=== PATIENT | female | born 1940 | race Hispanic/Latino ===

== ENCOUNTER → 2018-04-30 | Outpatient (CLI) | payer OTHER, SELFPAY ==
[~2018-04-30] MED LIST: AMLO5TAB7 PO; EZET10 PO; METO-391 PO; VALS1TAB81 PO
== END | disposition home or self-care (01) ==
LOC: OIH 13:08
PROVIDERS: ATTEND Internal Medicine Cardiovascular Disease
DX: Z13.6 Encounter for screening for cardiovascular disorders (principal)
CPT/HCPCS: 75571

== ENCOUNTER → 2018-05-08 | Outpatient (CLI) | payer OTHER | END | disposition home or self-care (01) | LOC: SHCH 14:56 | PROVIDERS: ATTEND Internal Medicine Cardiovascular Disease | DX: I35.0 Nonrheumatic aortic (valve) stenosis (principal); R01.1 Cardiac murmur, unspecified; I70.0 Atherosclerosis of aorta | CPT/HCPCS: 93306 ==

== ENCOUNTER → 2018-05-13 | Outpatient (CLI) | payer OTHER | END | disposition home or self-care (01) | LOC: SHCH 09:23 | PROVIDERS: ATTEND Internal Medicine Cardiovascular Disease | DX: I65.23 Occlusion and stenosis of bilateral carotid arteries (principal); I10 Essential (primary) hypertension; R01.1 Cardiac murmur, unspecified; I73.9 Peripheral vascular disease, unspecified; E78.5 Hyperlipidemia, unspecified | CPT/HCPCS: 93880; 93975 ==

== ENCOUNTER → 2018-08-03 | Outpatient (CLI) | payer OTHER ==
[~2018-08-03] VITALS: Ht 147.3 cm; Wt 67.8 kg
[~2018-08-03] MED LIST changes: -AMLO5TAB7 PO; +AMLO5TAB9 PO; +ASPI-1197 PO; +CLON0.1T PO; +CYAN10009 PO; +FOLI1TAB15 PO; +LOSA1TAB42 PO; +ROSU10TA27 PO
[2018-08-03 08:59] VITALS: BP 194/84
[2018-08-03 09:18] LABS: BASOPHILS % (AUTO) 1.1 % (0.0-5.0); HEMATOCRIT 36.2 % (36-48); LYMPHOCYTES % (AUTO) 21.8 % (21.0-51.0); MEAN CORPUSCULAR HEMOGLOBIN 30.9 pg (27.0-33.0); MEAN CORPUSCULAR HGB CONC 33.4 g/dL (32.0-36.0); MEAN CORPUSCULAR VOLUME 92.5 fL (79-99); MONOCYTES % (AUTO) 10.9 % (3.0-13.0); NEUTROPHILS % (AUTO) 64.2 % (40.0-77.0); PLATELET COUNT (AUTO) 356 K/uL (130-400); RED BLOOD CELL COUNT(AUTO) 3.92 MIL/uL (4.00-5.50); RED CELL DISTRIBUTION WIDTH 13.6 % (11.0-15.5); WHITE BLOOD COUNT (AUTO) 6.4 K/uL (4.8-10.8)
[2018-08-03 09:20] LABS: APPEARANCE,URINE Clear (CLEAR); BILIRUBIN,URINE Negative (NEGATIVE); COLOR,URINE Yellow (YELLOW); GLUCOSE, URINE (UA) Negative (NEGATIVE); KETONES,URINE Negative (NEGATIVE); LEUKOCYTE ESTERASE ,URINE Negative (NEGATIVE); NITRATE,URINE Negative (NEGATIVE); OCCULT BLOOD,URINE Negative (NEGATIVE); PROTEIN,URINE Negative (NEGATIVE)
[2018-08-03 09:25] LABS: CREATININE 0.6 mg/dL (0.5-1.5)
[2018-08-03 09:29] LABS: INR 0.95 (0.85-1.15); PARTIAL THROMBOPLASTIN TIME 28.2 SEC (26.3-35.5)
== END ==
LOC: EDSTATUS 08:00 → DAH 10:00
PROVIDERS: ATTEND Internal Medicine Cardiovascular Disease
DX: Z01.818 Encounter for other preprocedural examination (principal); I25.10 Atherosclerotic heart disease of native coronary artery without angina pectoris
CPT/HCPCS: 36415; 71045; 80048; 81003; 85025; 85610; 85730; 93005

== ENCOUNTER 2018-09-02 08:40 | Day surgery (SDC) | payer OTHER ==
[2018-08-31 13:55] VITALS: BP 176/73
[2018-08-31 14:11] LABS: BASOPHILS % (AUTO) 0.9 % (0.0-5.0); EOSINOPHILS % (AUTO) 0.7 % (0.0-8.0); HEMATOCRIT 38.8 % (36-48); LYMPHOCYTES % (AUTO) 20.9 % (21.0-51.0); MEAN CORPUSCULAR HEMOGLOBIN 31.1 pg (27.0-33.0); MEAN CORPUSCULAR HGB CONC 33.3 g/dL (32.0-36.0); MEAN CORPUSCULAR VOLUME 93.3 fL (79-99); MONOCYTES % (AUTO) 8.9 % (3.0-13.0); NEUTROPHILS % (AUTO) 68.6 % (40.0-77.0); PLATELET COUNT (AUTO) 433 K/uL (130-400); RED BLOOD CELL COUNT(AUTO) 4.16 MIL/uL (4.00-5.50); RED CELL DISTRIBUTION WIDTH 13.8 % (11.0-15.5); WHITE BLOOD COUNT (AUTO) 9.4 K/uL (4.8-10.8)
[2018-08-31 14:13] LABS: APPEARANCE,URINE Clear (CLEAR); BILIRUBIN,URINE Negative (NEGATIVE); COLOR,URINE Yellow (YELLOW); GLUCOSE, URINE (UA) Negative (NEGATIVE); KETONES,URINE Negative (NEGATIVE); LEUKOCYTE ESTERASE ,URINE Negative (NEGATIVE); NITRATE,URINE Negative (NEGATIVE); OCCULT BLOOD,URINE Negative (NEGATIVE); PROTEIN,URINE Negative (NEGATIVE)
[2018-08-31 14:17] LABS: CREATININE 0.6 mg/dL (0.5-1.5)
[2018-08-31 14:21] LABS: INR 0.98 (0.85-1.15); PARTIAL THROMBOPLASTIN TIME 29.6 SEC (26.3-35.5); PROTHROMBIN TIME 10.3 SEC (9.6-11.6)
[~2018-09-02] VITALS: Ht 147.3 cm; Wt 66.7 kg
[2018-09-02] VITALS (9 sets, daily range): BP systolic 123–151; BP diastolic 54–71
[~2018-09-02 08:40] MED LIST changes: +ASPI-1181 PO; -ASPI-1197 PO; +CYAN-52 PO; -CYAN10009 PO; -EZET10 PO; +EZET10TA13 PO; -ROSU10TA27 PO; +ROSU10TA28 PO; -VALS1TAB81 PO
--- NOTE | 2018-09-02 09:46 | NUR ---
PT REPORTS HAVING BELLS PALSY, BILATERALLY FACIAL WEAKNESS FOR OVER 30 YEARS.
[2018-09-02] MEDS ORDERED: SODIUM CHLORIDE 0.9% 1000ML 1,000 ML IV ONE (09:55)
[2018-09-02] MEDS ORDERED: IOHEXOL 350 MG/ML 100ML INFUS..BTL IV ONE (12:57)
[2018-09-02] MEDS ORDERED: NITROGLYCERIN 5 MG/ML 10 ML VIAL IV ONE (12:57)
[2018-09-02] MEDS ORDERED: SODIUM BICARB 50MEQ 50ML VIAL ONE (12:57)
[2018-09-02] MEDS ORDERED: IOHEXOL-350 50ML VIAL IV ONE (12:57)
[2018-09-02] MEDS ORDERED: LIDOCAINE HCL 2% 20ML ONE (12:59)
--- NOTE | 2018-09-02 13:10 | NUR ---
procedure pt taken to bottle label inspector for heart cath via bed,no distress noted.
[2018-09-02] MEDS ORDERED: MEPERIDINE-PF 25 MG/ML SYG ONE (13:12)
[2018-09-02] MEDS ORDERED: MIDAZOLAM HCL 1 MG/ML 2ML VIAL ONE (13:12)
[2018-09-02] MEDS ORDERED: SODIUM CHLORIDE 0.9% 1000ML 1,000 ML IV SCH (14:01)
[2018-09-02] MEDS ORDERED: ACETAMINOPHEN 325 MG TAB PO PRN (14:15)
--- NOTE | 2018-09-02 14:15 | NUR ---
post op received pt back from laboratory specialist, s/p [facility], right groin perclose dressing dry and intact, no bleeding hematoma to site. see post cath assessment. vs stable on arrival plan of care discuss with pt / family , instructed to keep bedrest for 4 hrs. call light within reach will continue to monitor
--- NOTE | 2018-09-02 18:00 | NUR ---
dc dc instructions given to pt / pts daughter, instructed to f/u with dr. arana to continue home meds. pt verbalized understanding. right groin perclose dressing dry and intact, no bleeding or hematoma to site . pt getting dress will be discharge once ready
== END 2018-09-02 18:20 | disposition home or self-care (01) ==
LOC: DAH 08:40
PROVIDERS: ATTEND Internal Medicine Cardiovascular Disease
DX: I25.118 Atherosclerotic heart disease of native coronary artery with other forms of angina pectoris (principal); I34.0 Nonrheumatic mitral (valve) insufficiency; I77.819 Aortic ectasia, unspecified site; I10 Essential (primary) hypertension; E78.5 Hyperlipidemia, unspecified; Z82.49 Family history of ischemic heart disease and other diseases of the circulatory system; Z79.899 Other long term (current) drug therapy; Z79.82 Long term (current) use of aspirin; Z79.01 Long term (current) use of anticoagulants
CPT/HCPCS: 36252; 36415; 71045; 80048; 81003; 85025; 85610; 85730; 93005; 93458; C1760; C1894; J2175; J2250; J3490 ×3; J7030; Q9965; Q9967 ×2; 99156; 99157

== ENCOUNTER → 2019-06-25 | Outpatient (CLI) | payer OTHER | END | disposition home or self-care (01) | LOC: SHCH 14:58 | PROVIDERS: ATTEND Internal Medicine Cardiovascular Disease | DX: I08.0 Rheumatic disorders of both mitral and aortic valves (principal); R01.1 Cardiac murmur, unspecified | CPT/HCPCS: 93306; 93356 ==

== ENCOUNTER → 2019-07-21 | Outpatient (CLI) | payer OTHER | END | disposition home or self-care (01) | LOC: RAH 14:00 | PROVIDERS: ATTEND Family Medicine | DX: Z12.31 Encounter for screening mammogram for malignant neoplasm of breast (principal) | CPT/HCPCS: 77067 ==

== ENCOUNTER → 2020-05-04 | Outpatient (CLI) | payer OTHER ==
[~2020-05-04] MED LIST changes: +AMLO-257 PO; -AMLO5TAB9 PO; -ASPI-1181 PO; +ASPI-1443 PO
== END | disposition home or self-care (01) ==
LOC: SHCH 09:54
PROVIDERS: ATTEND Internal Medicine Cardiovascular Disease
DX: I65.23 Occlusion and stenosis of bilateral carotid arteries (principal); I08.0 Rheumatic disorders of both mitral and aortic valves
CPT/HCPCS: 93306; 93356; 93880

== ENCOUNTER → 2020-07-31 | Outpatient (CLI) | payer MEDICARE | END | disposition home or self-care (01) | LOC: RAH 14:33 | PROVIDERS: ATTEND Family Medicine | DX: Z12.31 Encounter for screening mammogram for malignant neoplasm of breast (principal) | CPT/HCPCS: 77067 ==

== ENCOUNTER 2020-08-08 11:03 | Emergency (ER) | payer MEDICARE ==
[2020-08-08 11:23] LABS: BASOPHILS % (AUTO) 0.6 % (0.0-5.0); EOSINOPHILS % (AUTO) 0.3 % (0.0-8.0); HEMATOCRIT 34.5 % (36-48); LYMPHOCYTES % (AUTO) 14.1 % (21.0-51.0); MEAN CORPUSCULAR HEMOGLOBIN 31.2 pg (27.0-33.0); MEAN CORPUSCULAR HGB CONC 34.5 g/dL (32.0-36.0); MEAN CORPUSCULAR VOLUME 90.3 fL (79-99); MONOCYTES % (AUTO) 8.7 % (3.0-13.0); PLATELET COUNT (AUTO) 330 K/uL (130-400); RED BLOOD CELL COUNT(AUTO) 3.82 MIL/uL (4.00-5.50); RED CELL DISTRIBUTION WIDTH 13.2 % (11.0-15.5); WHITE BLOOD COUNT (AUTO) 9.1 K/uL (4.8-10.8)
[2020-08-08] MEDS ORDERED: HYDRALAZINE 20MG/ML VIAL ONE (11:24)
[2020-08-08 11:34] LABS: CREATININE 0.5 mg/dL (0.5-1.5); POTASSIUM 3.1 mmol/L (3.5-5.1)
[2020-08-08 11:41] LABS: ALBUMIN 3.7 g/dL (3.5-5.0); BILIRUBIN,TOTAL 0.6 mg/dL (0.2-1.0); TOTAL PROTEIN, SERUM 7.3 g/dL (6.0-8.3)
[2020-08-08] MEDS ORDERED: KETOROLAC 15MG/ML VIAL (15MG/ML) ONE (12:45)
[2020-08-08] MEDS ORDERED: KCL 20 MEQ ERTAB PO ONE (14:42)
[2020-09-27] MEDS ORDERED: SPIR25TA6 PO (12:54)
[2020-09-27] MEDS ORDERED: LOSA100T58 PO (12:54)
[2020-09-27] MEDS ORDERED: FURO20TA4 PO (12:54)
[2020-09-27] MEDS ORDERED: LABE200T5 PO (12:54)
[2020-09-27] MEDS ORDERED: NIFE60TA81 PO (12:54)
== END 2020-08-08 15:56 | disposition home or self-care (01) ==
LOC: EDH 11:03
DX: I10 Essential (primary) hypertension (principal); R51.9 Headache, unspecified; I25.10 Atherosclerotic heart disease of native coronary artery without angina pectoris
CPT/HCPCS: 36415; 70450; 80053; 83880; 84484; 85025; 93005; 96365; 96375; 99285; J0360; J1885

== ENCOUNTER 2020-09-28 07:50 | Day surgery (SDC) | payer MEDICARE ==
[2020-09-25 12:51] LABS: BASOPHILS % (AUTO) 0.7 % (0.0-5.0); EOSINOPHILS % (AUTO) 0.9 % (0.0-8.0); HEMATOCRIT 32.8 % (36-48); LYMPHOCYTES % (AUTO) 12.6 % (21.0-51.0); MEAN CORPUSCULAR HEMOGLOBIN 31.4 pg (27.0-33.0); MEAN CORPUSCULAR HGB CONC 33.8 g/dL (32.0-36.0); MEAN CORPUSCULAR VOLUME 92.9 fL (79-99); MONOCYTES % (AUTO) 9.8 % (3.0-13.0); NEUTROPHILS % (AUTO) 75.4 % (40.0-77.0); PLATELET COUNT (AUTO) 396 K/uL (130-400); RED BLOOD CELL COUNT(AUTO) 3.53 MIL/uL (4.00-5.50); RED CELL DISTRIBUTION WIDTH 13.8 % (11.0-15.5); WHITE BLOOD COUNT (AUTO) 10.7 K/uL (4.8-10.8)
[2020-09-25 12:52] LABS: APPEARANCE,URINE CLEAR (CLEAR); BILIRUBIN,URINE NEGATIVE (NEGATIVE); COLOR,URINE YELLOW (YELLOW); GLUCOSE, URINE (UA) NEGATIVE (NEGATIVE); KETONES,URINE NEGATIVE (NEGATIVE); LEUKOCYTE ESTERASE ,URINE NEGATIVE (NEGATIVE); NITRATE,URINE NEGATIVE (NEGATIVE); OCCULT BLOOD,URINE NEGATIVE (NEGATIVE); PROTEIN,URINE NEGATIVE (NEGATIVE); UROBILINOGEN,URINE 0.2 mg/dL (0.2-1.0)
[2020-09-25 12:58] LABS: CREATININE 0.9 mg/dL (0.5-1.5); POTASSIUM 5.2 mmol/L (3.5-5.1)
[2020-09-25 13:20] LABS: INR 0.96 (0.85-1.15); PROTHROMBIN TIME 10.5 SEC (9.6-11.6)
[2020-09-25 13:21] LABS: PARTIAL THROMBOPLASTIN TIME 26.5 SEC (26.3-35.5)
[2020-09-27 12:29] VITALS: BP 123/60
[2020-09-28] VITALS (10 sets, daily range): BP systolic 130–158; BP diastolic 59–64
[~2020-09-28] VITALS: Ht 149.9 cm; Wt 71.3 kg
[~2020-09-28 07:50] MED LIST changes: -AMLO-257 PO; -CLON0.1T PO; +FURO20TA4 PO; +LABE200T5 PO; +LOSA100T58 PO; -LOSA1TAB42 PO; -METO-391 PO; +NIFE60TA81 PO; +SPIR25TA6 PO
[2020-09-28] MEDS ORDERED: SODIUM CHLORIDE 0.9% 1000ML 1,000 ML IV ONE (09:10)
[2020-09-28] MEDS ORDERED: LIDOCAINE HCL 2% 20ML ONE (10:20)
[2020-09-28] MEDS ORDERED: IOHEXOL-350 50ML VIAL IV ONE (10:20)
[2020-09-28] MEDS ORDERED: NITROGLYCERIN 2 MG/VIAL VIAL IV ONE (10:20)
[2020-09-28] MEDS ORDERED: MEPERIDINE-PF 25 MG/ML SYG ONE (10:20)
[2020-09-28] MEDS ORDERED: IOHEXOL 350 MG/ML 100ML INFUS..BTL IV ONE (10:20)
[2020-09-28] MEDS ORDERED: SODIUM BICARB 50MEQ 50ML VIAL 50 ML ONE (10:20)
[2020-09-28] MEDS ORDERED: MIDAZOLAM HCL 1 MG/ML 2ML VIAL ONE (10:20)
[2020-09-28] MEDS ORDERED: HEPARIN SODIUM 1000UNIT/ML 10ML VIAL ONE (10:20)
[2020-09-28] MEDS ORDERED: SODIUM CHLORIDE 0.9% 1000ML 1,000 ML IV SCH (12:00)
[2020-09-28] MEDS ORDERED: NITROGLYCERIN 1GM/1 INCH PACKET TD ONE (12:47)
[2020-09-28] MEDS ORDERED: NITROGLYCERIN 1GM/1 INCH PACKET TD SCH (13:22)
== END 2020-09-28 16:20 | disposition home or self-care (01) ==
LOC: DAH 07:50
PROVIDERS: ATTEND Internal Medicine Cardiovascular Disease
DX: I35.0 Nonrheumatic aortic (valve) stenosis (principal); I10 Essential (primary) hypertension; E78.5 Hyperlipidemia, unspecified; G51.0 Bell's palsy; Z79.01 Long term (current) use of anticoagulants; Z79.899 Other long term (current) drug therapy
CPT/HCPCS: 36415; 71045; 80048; 81003; 85025; 85610; 85730; 93005; 93460; A4215; A4216; A4221; A4222; A4223 ×3; A4606; A4663; C1760; C1769 ×2; C1893; C1894; J1644; J2175; J2250; J3490 ×3; J7030; Q9965; Q9967 ×2; 99156; 99157

== ENCOUNTER → 2021-08-24 | Outpatient (CLI) | payer MEDICARE | END | disposition home or self-care (01) | LOC: SHCH 13:40 | PROVIDERS: ATTEND Internal Medicine Cardiovascular Disease | DX: I70.293 Other atherosclerosis of native arteries of extremities, bilateral legs (principal) | CPT/HCPCS: 93925 ==

== ENCOUNTER → 2022-01-16 | Outpatient (CLI) | payer MEDICARE ==
[~2022-01-16] MED LIST changes: -LABE200T5 PO; +LABE200T7 PO
== END | disposition home or self-care (01) ==
LOC: SHCH 11:20
PROVIDERS: ATTEND Internal Medicine Cardiovascular Disease
DX: I08.0 Rheumatic disorders of both mitral and aortic valves (principal); I11.9 Hypertensive heart disease without heart failure; E78.5 Hyperlipidemia, unspecified
CPT/HCPCS: 93306

== ENCOUNTER → 2022-06-04 | Outpatient (CLI) | payer MEDICARE | END | disposition home or self-care (01) | LOC: RAH 12:19 | PROVIDERS: ATTEND Physical Medicine & Rehabilitation | DX: M48.062 Spinal stenosis, lumbar region with neurogenic claudication (principal); M54.16 Radiculopathy, lumbar region; R25.2 Cramp and spasm; M41.9 Scoliosis, unspecified; M86.8X8 Other osteomyelitis, other site | CPT/HCPCS: 72082; 73522 ==

== ENCOUNTER → 2022-08-09 | Outpatient (CLI) | payer MEDICARE | END | disposition home or self-care (01) | LOC: RAH 11:27 | PROVIDERS: ATTEND Family Medicine | DX: Z12.31 Encounter for screening mammogram for malignant neoplasm of breast (principal) | CPT/HCPCS: 77067 ==

== ENCOUNTER → 2022-09-02 | Outpatient (CLI) | payer MEDICARE ==
[2022-09-02 12:51] LABS: BASOPHILS % (AUTO) 0.8 % (0.0-5.0); EOSINOPHILS % (AUTO) 1.8 % (0.0-8.0); HEMATOCRIT 30.8 % (36-48); LYMPHOCYTES % (AUTO) 21.5 % (21.0-51.0); MEAN CORPUSCULAR HEMOGLOBIN 31.8 pg (27.0-33.0); MEAN CORPUSCULAR HGB CONC 32.5 g/dL (32.0-36.0); MEAN CORPUSCULAR VOLUME 98.1 fL (79-99); NEUTROPHILS % (AUTO) 60.2 % (40.0-77.0); PLATELET COUNT (AUTO) 363 K/uL (130-400); RED BLOOD CELL COUNT(AUTO) 3.14 MIL/uL (4.00-5.50); RED CELL DISTRIBUTION WIDTH 12.9 % (11.0-15.5)
[2022-09-02 13:19] LABS: HEMOGLOBIN A1C 5.8 % (4.0-6.0)
[2022-09-02 13:22] LABS: ALBUMIN 3.7 g/dL (3.5-5.0); CREATININE 0.9 mg/dL (0.5-1.5); POTASSIUM 4.8 mmol/L (3.5-5.1); T4 (THYROXINE) 8.5 ug/dL (4.7-13.3); THYROID STIMULATING HORMONE 3.12 uIU/mL (0.36-3.74)
== END | disposition home or self-care (01) ==
LOC: LAB 10:41
PROVIDERS: ATTEND Internal Medicine Cardiovascular Disease
DX: I35.0 Nonrheumatic aortic (valve) stenosis (principal); I10 Essential (primary) hypertension; Z79.899 Other long term (current) drug therapy
CPT/HCPCS: 36415; 80053; 80061; 83036; 84436; 84443; 84479; 85025

== ENCOUNTER → 2022-09-21 | Outpatient (CLI) | payer MEDICARE | END | disposition home or self-care (01) | LOC: SHCH 11:25 | PROVIDERS: ATTEND Internal Medicine Cardiovascular Disease | DX: I35.0 Nonrheumatic aortic (valve) stenosis (principal); I51.7 Cardiomegaly | CPT/HCPCS: 93306 ==

== ENCOUNTER → 2022-09-27 | Outpatient (CLI) | payer MEDICARE ==
[~2022-09-27] MED LIST changes: -LOSA100T58 PO; +LOSA100T59 PO
== END | disposition home or self-care (01) ==
LOC: SHCH 13:46
PROVIDERS: ATTEND Internal Medicine Cardiovascular Disease
DX: R09.89 Other specified symptoms and signs involving the circulatory and respiratory systems (principal); I35.0 Nonrheumatic aortic (valve) stenosis; R06.00 Dyspnea, unspecified
CPT/HCPCS: 93880

== ENCOUNTER 2022-11-11 05:52 | Day surgery (SDC) | payer MEDICARE ==
[2022-11-07 13:12] LABS: APPEARANCE,URINE CLEAR (CLEAR); BILIRUBIN,URINE NEGATIVE (NEGATIVE); COLOR,URINE YELLOW (YELLOW); GLUCOSE, URINE (UA) NEGATIVE (NEGATIVE); KETONES,URINE NEGATIVE (NEGATIVE); LEUKOCYTE ESTERASE ,URINE NEGATIVE Leu/uL (NEGATIVE); NITRATE,URINE NEGATIVE (NEGATIVE); OCCULT BLOOD,URINE NEGATIVE (NEGATIVE); PH,URINE 5.5 (5.0-8.0); PROTEIN,URINE NEGATIVE (NEGATIVE); UROBILINOGEN,URINE 0.2 mg/dL (0.2-1.0)
[2022-11-07 13:22] VITALS: BP 153/70
[2022-11-07 13:37] LABS: EOSINOPHILS % (AUTO) 2.2 % (0.0-8.0); HEMATOCRIT 31.6 % (36-48); LYMPHOCYTES % (AUTO) 16.1 % (21.0-51.0); MEAN CORPUSCULAR HEMOGLOBIN 31.8 pg (27.0-33.0); MEAN CORPUSCULAR HGB CONC 32.9 g/dL (32.0-36.0); MEAN CORPUSCULAR VOLUME 96.6 fL (79-99); NEUTROPHILS % (AUTO) 66.9 % (40.0-77.0); PLATELET COUNT (AUTO) 354 K/uL (130-400); RED BLOOD CELL COUNT(AUTO) 3.27 MIL/uL (4.00-5.50); RED CELL DISTRIBUTION WIDTH 13.2 % (11.0-15.5); WHITE BLOOD COUNT (AUTO) 7.3 K/uL (4.8-10.8)
[2022-11-07 13:49] LABS: POTASSIUM 4.8 mmol/L (3.5-5.1)
[2022-11-07 13:53] LABS: INR 0.94 (0.85-1.15); PROTHROMBIN TIME 10.3 SEC (9.6-11.6)
[2022-11-07 13:55] LABS: PARTIAL THROMBOPLASTIN TIME 27.4 SEC (26.3-35.5)
[2022-11-07 14:04] LABS: B-TYPE NATRIURETIC PEPTIDE 267 pg/mL (0-100)
[~2022-11-11] VITALS: Ht 149.9 cm; Wt 69.0 kg
[2022-11-11] VITALS (11 sets, daily range): BP systolic 124–154; BP diastolic 51–67
[~2022-11-11 05:52] MED LIST changes: -CYAN-52 PO; +GABA-529 PO; -LOSA100T59 PO; +LOSA50TA64 PO; -NIFE60TA81 PO; +VITAMIN B12 PO
[2022-11-11] MEDS ORDERED: 0.9%NACL 1000ML 1,000 ML IV ONE (06:18)
[2022-11-11] MEDS ORDERED: SODIUM BICARB 50MEQ 50ML VIAL 50 ML ONE (07:06)
[2022-11-11] MEDS ORDERED: LIDOCAINE HCL 400MG/20ML VIAL ONE (07:06)
[2022-11-11] MEDS ORDERED: IOHEXOL-350 75 ML VIAL IV ONE (07:07)
[2022-11-11] MEDS ORDERED: MEPERIDINE-PF 25 MG/ML SYG ONE ×2 (07:07→07:39)
[2022-11-11] MEDS ORDERED: NITROGLYCERIN 50MG VIAL ONE (07:07)
[2022-11-11] MEDS ORDERED: IOHEXOL-350 50ML VIAL IV ONE (07:07)
[2022-11-11] MEDS ORDERED: MIDAZOLAM HCL 1 MG/ML 2ML VIAL ONE ×2 (07:07→07:39)
== END 2022-11-11 14:40 | disposition home or self-care (01) ==
LOC: DAH 05:52
PROVIDERS: ATTEND Internal Medicine Cardiovascular Disease
DX: I35.0 Nonrheumatic aortic (valve) stenosis (principal); I25.119 Atherosclerotic heart disease of native coronary artery with unspecified angina pectoris; I11.0 Hypertensive heart disease with heart failure; I50.32 Chronic diastolic (congestive) heart failure; E78.5 Hyperlipidemia, unspecified; Z79.01 Long term (current) use of anticoagulants; Z79.899 Other long term (current) drug therapy; Z79.82 Long term (current) use of aspirin; Z98.890 Other specified postprocedural states
CPT/HCPCS: 80048; 83880; 85025; 85610; 85730; 81003; 36415; 71045; 93005; 93460; C1769 ×3; C1894 ×2; C1893; C1760; J3490 ×3; J7030; J2250 ×2; J2175 ×2; J1644; Q9967; A4215; A4222; A4221; A4663; A4216; A4606; Q9965; A4223 ×3; 99156; 99157

== ENCOUNTER → 2023-01-17 | Outpatient (CLI) | payer MEDICARE ==
[2023-01-17 12:46] LABS: BILIRUBIN,TOTAL 0.6 mg/dL (0.2-1.0); CREATININE 0.7 mg/dL (0.5-1.5); MAGNESIUM 1.9 mg/dL (1.80-2.40); POTASSIUM 4.1 mmol/L (3.5-5.1)
[2023-01-17 12:47] LABS: ALBUMIN 3.2 g/dL (3.5-5.0); TOTAL PROTEIN, SERUM 6.9 g/dL (6.0-8.3)
== END | disposition home or self-care (01) ==
LOC: LAB 10:29
PROVIDERS: ATTEND Physician Assistant
DX: I10 Essential (primary) hypertension (principal)
CPT/HCPCS: 36415; 80053; 83735; 83880

== ENCOUNTER → 2023-09-25 | Outpatient (CLI) | payer MEDICARE ==
[~2023-09-25] MED LIST changes: -EZET10TA13 PO; +EZET10TA81 PO; -ROSU10TA28 PO; +ROSU10TA72 PO
[2023-09-25 12:14] LABS: BASOPHILS # (AUTO) 0.06 K/uL (0.00-0.20); BASOPHILS % (AUTO) 0.9 % (0.0-5.0); EOSINOPHILS # (AUTO) 0.18 K/uL (0.00-0.70); EOSINOPHILS % (AUTO) 2.6 % (0.0-8.0); HEMATOCRIT 31.4 % (36-48); IMMATURE GRANULOCYTE ABSOLUTE 0.03 K/uL (0-1); LYMPHOCYTES # (AUTO) 1.3 K/uL (1.0-4.8); LYMPHOCYTES % (AUTO) 18.4 % (21.0-51.0); MEAN CORPUSCULAR HEMOGLOBIN 31.3 pg (27.0-33.0); MEAN CORPUSCULAR HGB CONC 33.4 g/dL (32.0-36.0); MEAN CORPUSCULAR VOLUME 93.5 fL (79-99); NEUTROPHILS # (AUTO) 4.5 K/uL (1.8-7.7); NEUTROPHILS % (AUTO) 63.7 % (40.0-77.0); PLATELET COUNT (AUTO) 373 K/uL (130-400); RED BLOOD CELL COUNT(AUTO) 3.36 MIL/uL (4.00-5.50); RED CELL DISTRIBUTION WIDTH 13.6 % (11.0-15.5)
[2023-09-25 12:39] LABS: HEMOGLOBIN A1C 5.4 % (4.0-6.0)
[2023-09-25 12:58] LABS: ALANINE AMINOTRANSFERASE 27 U/L (12-78); ALBUMIN 3.6 g/dL (3.5-5.0); ASPARTATE AMINOTRANSFERASE 21 U/L (10-37); BILIRUBIN,TOTAL 0.8 mg/dL (0.2-1.0); CARBON DIOXIDE 29 mmol/L (21-32); CHLORIDE 101 mmol/L (101-111); CHOLESTEROL 129 mg/dL (<200); CREATININE 0.8 mg/dL (0.5-1.0); GLOMERULAR FILTR. RATE CALC 72 mL/min (>90); GLUCOSE,RANDOM 104 mg/dL (70-105); HDL CHOLESTEROL 84 mg/dL (35-85); LDL DIRECT 38 mg/dL (0-99); POTASSIUM 4.1 mmol/L (3.5-5.1); SODIUM SERUM 138 mmol/L (136-145); T3 UPTAKE 34 % (38-49); T4 (THYROXINE) 6.5 ug/dL (4.7-13.3); THYROID STIMULATING HORMONE 3.45 uIU/mL (0.36-3.74); TOTAL PROTEIN, SERUM 6.9 g/dL (6.0-8.3); TRIGLYCERIDES 32 mg/dL (30-200); UREA NITROGEN, BLOOD 15 mg/dL (7-18)
== END | disposition home or self-care (01) ==
LOC: LAB 09:11
PROVIDERS: ATTEND Internal Medicine Cardiovascular Disease
DX: I10 Essential (primary) hypertension (principal); E78.5 Hyperlipidemia, unspecified; Z79.899 Other long term (current) drug therapy
CPT/HCPCS: 36415; 80053; 80061; 82306; 82607; 82746; 83036; 83540; 83735; 83880; 84436; 84443; 84479; 85025

== ENCOUNTER → 2023-10-10 | Outpatient (CLI) | payer MEDICARE | LOC: SHCH 10:27 | PROVIDERS: ATTEND Internal Medicine Cardiovascular Disease | DX: I08.8 Other rheumatic multiple valve diseases (principal); I87.2 Venous insufficiency (chronic) (peripheral); I10 Essential (primary) hypertension; E78.5 Hyperlipidemia, unspecified | CPT/HCPCS: 93306; 93970 ==

== ENCOUNTER 2024-04-13 06:41 | Day surgery (SDC) | payer MEDICARE ==
--- NOTE | 2024-04-08 10:44 | EKG ---
[facility] Test Date: 2024-04-08 Test Time: 11:28:18 Pat Name: ADELE ANTONIO Department: [facility] Room: Gender: F Tool Crib Clerk: [id number] : 1940 Requested By: Roberto QUIROZ Order Number: [id number] Reading MD: Mitchell Cruz Measurements Intervals [place] Rate: 64 P: 38 [place]: 186 QRS: 28 QRSD: 87 T: 62 QT: 424 QTc: 437 Interpretive Statements Sinus rhythm Compared to ECG 11/07/2022 13:00:20 No significant changes Electronically Signed On 04-08-2024 19:35:13 AMBULANCE DRIVER by Mitchell Cruz Please click the below link to view image of tracing.
[2024-04-08 10:58] LABS: BASOPHILS # (AUTO) 0.05 K/uL (0.00-0.20); BASOPHILS % (AUTO) 0.7 % (0.0-5.0); EOSINOPHILS # (AUTO) 0.09 K/uL (0.00-0.70); EOSINOPHILS % (AUTO) 1.3 % (0.0-8.0); HEMATOCRIT 36.4 % (36-48); IMMATURE GRANULOCYTE ABSOLUTE 0.01 K/uL (0-1); LYMPHOCYTES # (AUTO) 1.2 K/uL (1.0-4.8); LYMPHOCYTES % (AUTO) 17.5 % (21.0-51.0); MEAN CORPUSCULAR HEMOGLOBIN 32.3 pg (27.0-33.0); MEAN CORPUSCULAR VOLUME 97.8 fL (79-99); MONOCYTES # (AUTO) 0.8 K/uL (0.1-1.0); MONOCYTES % (AUTO) 10.9 % (3.0-13.0); NEUTROPHILS # (AUTO) 4.8 K/uL (1.8-7.7); NEUTROPHILS % (AUTO) 69.5 % (40.0-77.0); PLATELET COUNT (AUTO) 363 K/uL (130-400); RED BLOOD CELL COUNT(AUTO) 3.72 MIL/uL (4.00-5.50); RED CELL DISTRIBUTION WIDTH 12.8 % (11.0-15.5); WHITE BLOOD COUNT (AUTO) 6.9 K/uL (4.8-10.8)
[2024-04-08 11:07] LABS: CREATININE 0.8 mg/dL (0.5-1.0)
[2024-04-08 11:13] VITALS: BP 192/79; PULSE 64; RESP 16; TEMP 98
[2024-04-08 11:19] LABS: PROTHROMBIN TIME 10.8 SEC (9.6-11.6)
[2024-04-08 11:20] LABS: PARTIAL THROMBOPLASTIN TIME 28.1 SEC (26.3-35.5)
[2024-04-08 11:29] LABS: B-TYPE NATRIURETIC PEPTIDE 236 pg/mL (0-100)
--- NOTE | 2024-04-08 12:01 | HMCIMG ---
CHEST 1VW REASON: PRE OP COMPARISON: 11/07/2022 FINDINGS: Single view of the chest was obtained. Lungs are clear. Heart size is normal. There is no pulmonary vascular congestion. Mediastinum and bony thorax appear unremarkable. IMPRESSION: 1. Normal single view chest x-ray.
[2024-04-08 12:34] LABS: APPEARANCE,URINE CLEAR (CLEAR); BILIRUBIN,URINE NEGATIVE (NEGATIVE); COLOR,URINE YELLOW (YELLOW); GLUCOSE, URINE (UA) NEGATIVE (NEGATIVE); KETONES,URINE NEGATIVE (NEGATIVE); LEUKOCYTE ESTERASE ,URINE NEGATIVE Leu/uL (NEGATIVE); NITRATE,URINE NEGATIVE (NEGATIVE); OCCULT BLOOD,URINE NEGATIVE (NEGATIVE); PROTEIN,URINE 10 mg/dL (NEGATIVE); UROBILINOGEN,URINE 0.2 mg/dL (0.2-1.0)
[2024-04-08 12:35] LABS: ADD UA MICROSCOPIC YES
[2024-04-08 12:38] LABS: MUCUS,URINE RARE LPF (None Seen); WBC,URINE 0-1 /HPF (0-1)
[~2024-04-13] VITALS: Ht 149.9 cm; Wt 69.3 kg
[2024-04-13] VITALS (12 sets, daily range): BP systolic 112–166; BP diastolic 49–67; PULSE 58–65; RESP 12–17; TEMP 97–97.2
[~2024-04-13 06:41] MED LIST changes: -FOLI1TAB15 PO; +FOLI20CA PO; -FURO20TA4 PO; +FURO40TA5 PO; -GABA-529 PO; +LOSA100T59 PO; -LOSA50TA64 PO; +NIFE-79 PO; -SPIR25TA6 PO
[2024-04-13] MEDS: 0.9%NACL 1000ML 1,000 ML IV ONE (07:09)
[2024-04-13] MEDS ORDERED: IOHEXOL 350 MG/ML 100ML INFUS..BTL IV ONE (07:22)
[2024-04-13] MEDS ORDERED: HEParin 10,000 UNIT/10ML (1,000 UNIT/ML) VIAL ONE (07:22)
[2024-04-13] MEDS ORDERED: HEParin-NS 1,000 UNIT/500 ML 1,000 ML IV ONE (07:22)
[2024-04-13] MEDS ORDERED: NITROGLYCERIN 50MG VIAL ONE (07:22)
[2024-04-13] MEDS ORDERED: LIDOCAINE HCL 400MG/20ML VIAL ONE (07:22)
[2024-04-13] MEDS ORDERED: IOHEXOL-350 50ML VIAL IV ONE (07:22)
[2024-04-13] MEDS ORDERED: SODIUM BICARB 50MEQ 50ML VIAL 50 ML ONE (07:24)
[2024-04-13] MEDS ORDERED: MEPERIDINE-PF 25 MG/ML SYG ONE (07:47)
[2024-04-13] MEDS ORDERED: MIDAZOLAM HCL 1 MG/ML 2ML VIAL ONE (07:47)
[2024-04-13] MEDS ORDERED: niCARDIpine 25MG INJ IV ONE (08:49)
[2024-04-13] MEDS ORDERED: DEXTROSE 50%-WATER 50 ML DISP.SYRIN IV PRN (09:00)
[2024-04-13] MEDS ORDERED: 0.9%NACL 10ML VIAL IVP SCH (09:00)
--- NOTE | 2024-04-13 09:25 | CCATH ---
PROCEDURES: 1. Right and left heart catheterization. 2. Selective diagnostic right and left coronary arteriogram. 3. Left ventriculogram. INDICATIONS: 1. Severe aortic stenosis by echocardiographic criteria with a valve area of 0.7 and a peak gradient of 55 mmHg. 2. Progressive dyspnea on exertion and fatigue. COMPLICATIONS: None. TOTAL CONTRAST: Approximately 75 mL. DESCRIPTION OF PROCEDURE: The patient was taken to the cardiac catheterization lab after appropriate operative consents were signed. She was prepped and draped in the usual fashion. After conscious sedation was administered, the right and left common femoral artery region was infiltrated with 2% Xylocaine without epinephrine. Ultrasound guidance was utilized to access the right common femoral artery, right common femoral vein. A 7-Barbadian sheath was advanced in the right common femoral vein by modified Seldinger technique in a retrograde fashion. A 6 x 45 sheath was advanced in the right common femoral artery in a retrograde fashion under fluoroscopic guidance over an indwelling wire under modified Seldinger technique. At this point, a Smil[place]-Lorie catheter was advanced and positioned into the right atrium, right ventricle, PA, and pulmonary capillary wedge positions. Pressures were obtained and recorded. Cardiac output was performed. At this point, a multipurpose 6-Barbadian catheter was advanced and selectively engaged to the ostium of the right coronary artery. This was imaged in multiplane identifying a moderate-sized right coronary artery, was tortuous in its distal segment. It gave rise to an acute marginal and a PDA as well as a fairly small PLVB. The right coronary artery had a calcified 20% proximal tubular stenotic lesion. The catheter was then withdrawn and reintroduced into the left main coronary artery. This was imaged in multiplane. Left main was calcified, but without significant stenotic lesions. It trifurcated into an LAD, fairly small intermediate, and circumflex. The LAD was a moderately sized vessel that was calcified in its proximal portion, had a 20% stenotic lesion. It gave rise to several diagonals and septal perforators. The intermediate was small and without significant stenosis. Circumflex was a moderately sized vessel and had a 20% proximal calcified lesion. It gave rise to 2 small OMs and a distal sizable OM with an ongoing circ. There were no significant lesions other than the proximal 20% lesion. At this point, the multipurpose catheter was crossed into the left ventricular cavity. This was exchanged over an indwelling J-wire for a 5-Barbadian pigtail catheter. At this point, measurements were obtained between the left ventricular end-diastolic pressure, which was elevated and the pulmonary capillary wedge pressure as well as the PA. There was no significant gradient across the mitral valve. The pigtail catheter was utilized to perform left ventriculogram. This revealed hyperdynamic contractility with EF in the 75% plus range. The left ventricular cavity was small. There was no significant MR. Simultaneous measurements of pressure in the left ventricle and the aorta resulted in a 22 mm gradient. Pullback confirmed similar findings. At this point, the procedure was completed, Mynx was utilized with good hemostasis. The Smilax-Lorie was removed and venous sheath was managed with manual pressure. The patient tolerated the procedure well, left the cardiac catheterization lab in stable condition. FINAL IMPRESSION: 1. Minimal, nonobstructive coronary artery disease. 2. Moderate aortic stenosis with low flow, low gradient features, likely secondary to a small ventricular cavity. 3. Moderate pulmonary hypertension with a prominent V-wave and no significant mitral regurgitation. PLAN: I will continue to optimize medical management of this patient. She is 83 years of age. I will increase her diuretic dose given her high LVEDP and moderate pulmonary hypertension. I will also assess her pulmonary status carefully. I would consider TAVR for refractory symptoms. TID: [id number] RECEIPT: [id number]
[2024-04-13] MEDS ORDERED: cloNIDine HCL 0.1 MG TABLET PO PRN (09:30)
[2024-04-13] MEDS: acetaMINOPHEN WITH coDEINE 1 TAB TAB PO ONE (11:29)
[2024-04-13] MEDS ORDERED: INSULIN humuLIN R 100 UNIT/ML 3ML SQ SCH (11:30)
--- NOTE | 2024-04-13 14:25 | NUR ---
URINARY: VOIDED QS ON BRIEF WITHOUT DIFFICULTY.
== END 2024-04-13 14:58 | disposition home or self-care (01) ==
LOC: DAH 06:41
PROVIDERS: ATTEND Internal Medicine Cardiovascular Disease
DX: R06.09 Other forms of dyspnea (principal); I25.10 Atherosclerotic heart disease of native coronary artery without angina pectoris; I35.0 Nonrheumatic aortic (valve) stenosis; I27.20 Pulmonary hypertension, unspecified; G51.0 Bell's palsy; I10 Essential (primary) hypertension; E78.5 Hyperlipidemia, unspecified; Z98.51 Tubal ligation status; Z88.8 Allergy status to other drugs, medicaments and biological substances; Z79.82 Long term (current) use of aspirin; Z79.01 Long term (current) use of anticoagulants; Z79.899 Other long term (current) drug therapy
CPT/HCPCS: 80048; 83880; 85025; 85610; 85730; 81001; 36415; 71045; 93005; 93460; C1769 ×3; C1894 ×3; C1893; C1760; J3490 ×4; J7030; J2250; J2175; J1644; Q9967 ×2; A4215; A4335; A4222; A4221; A4663; A4216; A4606; Q9965; A4520; A4223 ×3; A4554; 99156; 99157

== ENCOUNTER → 2024-05-10 | Outpatient (CLI) | payer MEDICARE ==
[~2024-05-10] MED LIST changes: -FURO40TA5 PO
[2024-05-10 11:48] LABS: BASOPHILS # (AUTO) 0.05 K/uL (0.00-0.20); BASOPHILS % (AUTO) 0.7 % (0.0-5.0); EOSINOPHILS # (AUTO) 0.06 K/uL (0.00-0.70); EOSINOPHILS % (AUTO) 0.8 % (0.0-8.0); HEMATOCRIT 34.4 % (36-48); IMMATURE GRANULOCYTE ABSOLUTE 0.03 K/uL (0-1); LYMPHOCYTES # (AUTO) 1.6 K/uL (1.0-4.8); LYMPHOCYTES % (AUTO) 20.4 % (21.0-51.0); MEAN CORPUSCULAR HEMOGLOBIN 32.1 pg (27.0-33.0); MEAN CORPUSCULAR HGB CONC 33.7 g/dL (32.0-36.0); MEAN CORPUSCULAR VOLUME 95.3 fL (79-99); MONOCYTES # (AUTO) 0.8 K/uL (0.1-1.0); MONOCYTES % (AUTO) 10.2 % (3.0-13.0); NEUTROPHILS # (AUTO) 5.1 K/uL (1.8-7.7); NEUTROPHILS % (AUTO) 67.5 % (40.0-77.0); PLATELET COUNT (AUTO) 331 K/uL (130-400); RED BLOOD CELL COUNT(AUTO) 3.61 MIL/uL (4.00-5.50); RED CELL DISTRIBUTION WIDTH 12.4 % (11.0-15.5); WHITE BLOOD COUNT (AUTO) 7.6 K/uL (4.8-10.8)
[2024-05-10 12:21] LABS: BILIRUBIN,TOTAL 0.6 mg/dL (0.2-1.0); CREATININE 1.1 mg/dL (0.5-1.0); MAGNESIUM 2.1 mg/dL (1.80-2.40); POTASSIUM 5.8 mmol/L (3.5-5.1); TOTAL PROTEIN, SERUM 7.3 g/dL (6.0-8.3)
== END | disposition home or self-care (01) ==
LOC: LAB 10:07
PROVIDERS: ATTEND Internal Medicine Cardiovascular Disease
DX: I10 Essential (primary) hypertension (principal); R06.00 Dyspnea, unspecified
CPT/HCPCS: 36415; 80053; 83735; 83880; 85025

== ENCOUNTER → 2024-06-09 | Outpatient (CLI) | payer MEDICARE | END | disposition home or self-care (01) | LOC: RESP 14:40 | PROVIDERS: ATTEND Internal Medicine Cardiovascular Disease | DX: R06.00 Dyspnea, unspecified (principal) | CPT/HCPCS: 94060 ==

== ENCOUNTER → 2024-07-14 | Outpatient (CLI) | payer MEDICARE ==
--- NOTE | 2024-07-14 15:13 | HMCIMG ---
CT CHEST HIGH RESOLUTION (WO) REASON: Overweight COMPARISON: None TECHNIQUE: Axial images are obtained from thoracic inlet through the lung bases at 5 mm sections. Additional high-resolution 1 mm sections are obtained at intervals throughout both lungs in inspiration and expiration. FINDINGS: There is normal-appearing pulmonary parenchyma. There is no evidence of fibrosis. High-resolution images show findings. There is no bronchiectasis. There is no honeycombing. There are no blebs or bulla. There are no focal masses. There is no evidence of pulmonary nodule. Heart size is normal. There is moderate coronary artery calcifications. Hilar and mediastinal structures appear normal. Chest wall structures appear normal as do visualized upper abdominal structures, with the exception of a stone in a normal-appearing gallbladder. IMPRESSION: 1. Cholelithiasis without evidence of acute cholecystitis. 2. Otherwise normal high resolution CT chest.
== END | disposition home or self-care (01) ==
LOC: RAH 14:10
PROVIDERS: ATTEND Internal Medicine Cardiovascular Disease
DX: I25.10 Atherosclerotic heart disease of native coronary artery without angina pectoris (principal); K80.20 Calculus of gallbladder without cholecystitis without obstruction; E66.3 Overweight; D25.9 Leiomyoma of uterus, unspecified
CPT/HCPCS: 71250

== ENCOUNTER → 2024-12-07 | Outpatient (CLI) | payer MEDICARE ==
--- NOTE | 2024-12-07 14:56 | HMCIMG ---
EXAM: CR left Knee, 3 View. CLINICAL HISTORY: UNILATERAL PRIMARY OSTEOARTHRITIS , LEFT KNEE COMPARISON: None provided. FINDINGS: BONES: No acute fracture or aggressive appearing osseous lesion. JOINTS: Severe medial compartment, and mild to moderate patellofemoral and lateral compartment left knee joint osteoarthritis. There is no knee joint effusion. SOFT TISSUES: The soft tissues are unremarkable. IMPRESSION: 1. Severe medial compartment and mild to moderate patellofemoral and lateral compartment osteoarthritis of the left knee. 2. No acute findings. /[place]
== END | disposition home or self-care (01) ==
LOC: RAH 11:50
PROVIDERS: ATTEND Physical Medicine & Rehabilitation
DX: M17.12 Unilateral primary osteoarthritis, left knee (principal)
CPT/HCPCS: 73562

== ENCOUNTER 2025-03-11 10:32 | Observation (INO) | payer MEDICARE ==
[2025-03-09 12:58] LABS: ADD UA MICROSCOPIC NO; APPEARANCE,URINE CLEAR (CLEAR); GLUCOSE, URINE (UA) NEGATIVE (NEGATIVE); LEUKOCYTE ESTERASE ,URINE NEGATIVE Leu/uL (NEGATIVE); NITRATE,URINE NEGATIVE (NEGATIVE); OCCULT BLOOD,URINE NEGATIVE (NEGATIVE)
[2025-03-09 13:15] LABS: IMMATURE GRANULOCYTE ABSOLUTE 0.12 K/uL (0-1); NUCLEATED RED BLOOD CELLS 0.0 % (0.0-0.19); PLATELET COUNT (AUTO) 375 K/uL (130-400); RED BLOOD CELL COUNT(AUTO) 3.61 MIL/uL (4.00-5.50); RED CELL DISTRIBUTION WIDTH 13.2 % (11.0-15.5); WHITE BLOOD COUNT (AUTO) 10.7 K/uL (4.8-10.8)
[2025-03-09 13:23] LABS: CREATININE 0.9 mg/dL (0.5-1.0); GLOMERULAR FILTR. RATE CALC 62.0 mL/min (>90); GLUCOSE,RANDOM 112.0 mg/dL (70-105); SODIUM SERUM 137.0 mmol/L (136-145); UREA NITROGEN, BLOOD 18.0 mg/dL (7-18)
[2025-03-09 13:24] VITALS: BP 138/72; PULSE 67; RESP 17; TEMP 96.9
[2025-03-09 13:37] LABS: INR 1.0 (0.85-1.15)
--- NOTE | 2025-03-09 14:35 | HMCIMG ---
RADIOLOGY REPORT Examination: X-Ray Chest Clinical History: Pre operative check up. Comparison: None. Technique: Frontal projection of the chest was obtained. Findings Lungs: Both lung ho are clear. No focal consolidation, collapse, or infiltrates seen. No evidence of pneumothorax or pleural effusion. Pleural Spaces and Costophrenic Angles: Both costophrenic angles appear sharp and clear. No pleural thickening or fluid noted. Mediastinum and Trachea: Tracheal air column is centrally placed. Mediastinal contours are within normal limits. Cardiac Silhouette: The cardiac shadow is normal in size and configuration. Diaphragm: Both hemidiaphragms are normal in contour and position. No subdiaphragmatic free air detected. Bones and Soft Tissues: The bony thoracic cage and visualized soft tissues appear unremarkable. IMPRESSION: 1. No acute cardiopulmonary findings. /[place]
--- NOTE | 2025-03-09 14:38 | EKG ---
[facility] Test Date: 2025-03-09 Test Time: 12:41:25 Pat Name: ADELE ANTONIO Department: [facility] Room: Gender: F Position Classifier: [id number] : 1940 Requested By: Roberto QUIROZ Order Number: [id number] Reading MD: Maday Bernal Measurements Intervals [place] Rate: 61 P: 30 [place]: 156 QRS: 0 QRSD: 96 T: 61 QT: 430 QTc: 435 Interpretive Statements Sinus rhythm Nonspecific T abnormalities, anterior leads Compared to ECG 04/08/2024 11:28:18 T-wave abnormality now present Electronically Signed On 03-09-2025 16:38:55 CDT by Maday Bernal Please click the below link to view image of tracing.
[2025-03-11] VITALS (12 sets, daily range): BP systolic 110–158; BP diastolic 46–58; PULSE 60–67; RESP 17–18; TEMP 97.6–98.2; O2SAT 95
[~2025-03-11] VITALS: Ht 149.9 cm; Wt 71.2 kg
[~2025-03-11 10:32] MED LIST changes: +ASPI-1005 PO; -ASPI-1443 PO; +CLON0.1T PO; -FOLI20CA PO; +FURO40TA5 PO; -LOSA100T59 PO; +LOSA50TA64 PO; -ROSU10TA72 PO; +ROSU10TA98 PO; -VITAMIN B12 PO; +[UNRECOGNIZED DRUG - OTHER] PO; +folic acid PO; +vitamin b12 PO
[2025-03-11] MEDS: 0.9%NACL 1000ML 1,000 ML IV SCH (13:51)
[2025-03-11] MEDS ORDERED: SODIUM BICARB 50MEQ 50ML VIAL 50 ML ONE (15:45)
[2025-03-11] MEDS ORDERED: HEParin-NS 1,000 UNIT/500 ML 1,000 ML IV ONE (15:46)
[2025-03-11] MEDS ORDERED: IOHEXOL-350 50ML VIAL IV ONE (15:46)
[2025-03-11] MEDS ORDERED: LIDOCAINE HCL 400MG/20ML VIAL ONE ×2 (15:47→16:30)
[2025-03-11] MEDS ORDERED: NITROGLYCERIN 50MG VIAL ONE (15:47)
[2025-03-11] MEDS ORDERED: MIDAZOLAM HCL 1 MG/ML 2ML VIAL ONE ×2 (15:52→16:09)
[2025-03-11] MEDS ORDERED: IOHEXOL 350 MG/ML 100ML INFUS..BTL IV ONE (15:54)
[2025-03-11] MEDS ORDERED: HEParin-NS 1,000 UNIT/500 ML 500 ML IV ONE (15:59)
--- NOTE | 2025-03-11 18:20 | CCATH ---
PROCEDURE NOTE PROCEDURES: 1. Right heart catheterization. 2. Left heart catheterization. 3. Selective diagnostic right and left coronary arteriogram. 4. Conscious sedation for 60 minutes. INDICATIONS: Severe, symptomatic aortic stenosis. COMPLICATIONS: None. DESCRIPTION OF PROCEDURE: The patient was taken to the cardiac medical laboratory scientist after appropriate operative consents were signed. She was prepped and draped in the usual fashion. After conscious sedation was administered, the right and left common femoral artery and vein regions were infiltrated with 2% Xylocaine without epinephrine. Right common femoral artery was accessed in retrograde fashion with the modified Seldinger technique and a 6 x 45 sheath was advanced over an indwelling wire under fluoroscopic guidance. Multiple attempts were made to cannulate the right common femoral vein; however, that was not a successful endeavor. The patient was noted to have no flow in the right common or femoral vein and it was noncompressible, so I elected not to intervene given the potential for possible compromise. At this point, the left common femoral vein was accessed after ultrasound guidance was utilized. A [place]-Lorie catheter was advanced under fluoroscopic guidance and positioned in the right atrium, right ventricle, PA, and pulmonary capillary wedge pressure positions. Pressures were recorded and logged. At this point, a multipurpose catheter was advanced over an indwelling wire. This was selectively engaged in the ostium of the right coronary artery. Imaging was obtained in multiplane. The right coronary artery was a moderately large vessel that had a tortuous segment in its distal end. It gave rise an acute marginal PDA and a small PLVB. No significant stenotic lesions were identified. The catheter was then redirected and engaged in the ostium of the left main. This was imaged in multiplane. The left main was a moderately large vessel that was free of disease. It trifurcate to an LAD, small intermediate, and circumflex. The LAD was a moderately sized vessel that had a calcified segment of approximately 20% and a calcified area in the proximal portion. The rest of the LAD and diagonals were free of disease. Intermediate was a small vessel that was free of disease. The circumflex was a moderately sized vessel that gave rise to 2 small marginals and ongoing distal OM3 that was moderately sized. There was an area of 20% stenosis of the proximal circumflex. At this point, we were able to cross into the left ventricular cavity and we exchanged for a 5-Kiswahili pigtail catheter. The patient did not have any hemodynamic features of mitral stenosis. She did have moderate pulmonary hypertension. The gradient across the aortic valve was measured and surprisingly, we had varying measurements with at times measurements as low as 36 mmHg and at other times we had a segment in which the patient had some PVCs and had a gradient of 65-70 mmHg. It was not a positive Brockenbrough phenomenon. The patient's pullback was consistent with approximately 36 mmHg gradient. Cardiac output was performed and recorded. At this point, the procedure was completed, Angio-Seal was utilized with good hemostasis. Vascade was utilized for the [place]-Lorie with good hemostasis. The patient was stable and tolerated the procedure well at the end of the procedure. FINAL IMPRESSION: 1. Minimal, nonobstructive luminal irregularities with no significant coronary artery lesions. 2. Moderate pulmonary hypertension. 3. Hemodynamically significant aortic stenosis by echocardiography and by cardiac catheterization. 4. Questionable hypertrophic component to the patient's gradient. PLAN: We will continue medical management. We will observe the patient, reassess an echocardiogram, and consider an evaluation for TAVR. TID: [id number] RECEIPT: [id number]
--- NOTE | 2025-03-11 18:20 | NUR ---
RECEIVED PATIENT FROM [facility] PATIENT TRANSFERRED TO ROOM VIA BED. PATIENT ORIENTATED TO ROOM,NO O2 WAS NEEDED. VITALS WERE STARTED. L GROIN SITE DRESSING IS DRY AND INTACT, NO SIGNS OF EDEMA OR BLEEDING. R GROIN SITE DRY AND INTACT, NO SIGNS OF EDEMA OR BLEEDING. ANSWERED ANY QUESTIONS AND CONCERNS PATIENT HAD. CALL LIGHT WITHIN REACH.
[2025-03-12 00:22] VITALS: BP 138/53; PULSE 64; RESP 18; TEMP 97.9
[2025-03-12 04:00] VITALS: BP 156/56; PULSE 58; RESP 17; TEMP 97.6
[2025-03-12 08:00] VITALS: BP 181/57; PULSE 60; RESP 18; TEMP 98.3; O2SAT 97
[2025-03-12] MEDS: CYANOCOBALAMIN (VITAMIN B-12) 1,000 MCG TABLET PO SCH (08:07)
[2025-03-12] MEDS: ASPIRIN 81MG CHEW TAB PO SCH (08:08)
[2025-03-12] MEDS: [UNRECOGNIZED DRUG - OTHER] PO SCH (08:08)
[2025-03-12] MEDS: EZETIMIBE 10 MG TAB PO SCH (08:08)
[2025-03-12 11:47] VITALS: BP 147/77; PULSE 60; RESP 18; TEMP 98.3
--- NOTE | 2025-03-12 13:49 | HMCSR ---
APPROVED REPORT EXAM: Two-dimensional and M-mode echocardiogram with Doppler and color Doppler. INDICATION ICD: CHF 2D Dimensions RVDd4.0 cmLVEF(%)74.9 (>50%)LVED Vol(simp.)83.0 mL IVSd1.0 (0.7-1.1cm)FS(%)43 %LVES Vol(simp.)35.0 mL LVDd3.5 (3.8-5.6cm)LA (2D)4.0 (1.6-4.0cm)LVEF(%, simp.)57 % PWd1.2 (0.7-1.1cm)Ao Root(2D)2.7 (2.0-3.7cm)LA ESV INDEX (BP)40.73 mL/m2 LVDs2.0 (2.5-4.0cm)LVOT diam1.9 (1.8-2.4cm) IVC diam1.6 cm Deformation Strain Apical 4-13.7 % Apical 2-16.9 % Apical 3-13.7 % Global Strain-14.7 % Aortic Valve AoV Vmax3.5 m/Enmanuel Peak GR48.8 mmHgLVOT Vmax0.9 m/s AoV VTI0.9 mAo Mean GR28.8 mmHgLVOT VTI0.24 m SHERIF (VMAX)0.74 cm2Al P1/2T418 msAVA (VTI) 0.8 cm2 Mitral Valve MV E Yrtq410.2 cm/sDECEL Rirw437 ms MV A Vmax54.6 cm/sP 1/2 T69 ms E/A ratio2.0MVA (PHT)3.2 cm2 TDI E/E' Ipynpc79.4E/E' Lyugeft03.4 Medial E' Peak V5.53 cm/sLateral E' Peak V6.17 cm/s Pulmonary Valve PV Vmax1.1 m/sPV VTI0.26 mPV Mean GR2.7 mmHg PV Peak GR4.6 mmHg Tricuspid Valve TR Vmax2.7 m/sRVSP28.9 mmHg TR Peak GR29.1 mmHg Left Ventricle Left ventricular cavity size is normal. Mild left ventricular hypertrophy. LVEF is 55-60%. Stage II d iastolic dysfunction. Right Ventricle The right ventricle is normal size. The right ventricular systolic function is normal. Atria The left atrium is moderately dilated. The right atrium size is normal. Aortic Valve The aortic valve is calcified and displays decreased opening. Mild aortic regurgitation. There is mod erate to severe valvular aortic stenosis. Highest mean aortic valve gradient is 38mmHg. PV 3.4 m/s, A VA 0.9 cm2. Peak aortic valve gradient is 66mmHg. Mitral Valve The mitral valve is normal in structure and function. Mitral regurgitation is mild. There is no maddie l valve stenosis. Tricuspid Valve The tricuspid valve is normal in structure and function. There is trace tricuspid valve regurgitation noted. Pulmonic Valve The pulmonary valve is normal in structure and function. There is no pulmonic valvular regurgitation. Great Vessels The aortic root is normal in size. The IVC is normal in size and collapses >50% with inspiration. Pericardium No pericardial effusion. Conclusion Left ventricular cavity size is normal. LVEF is 55-60%. Stage II diastolic dysfunction. The right ventricle is normal size. The right ventricular systolic function is normal. The left atrium is moderately dilated. The right atrium size is normal. Mild aortic regurgitation. There is moderate to severe valvular aortic stenosis. Highest mean aortic valve gradient is 38mmHg. P V 3.4 m/s, SHERIF 0.9 cm2. Peak aortic valve gradient is 66mmHg. Mitral regurgitation is mild. No pericardial effusion.
[2025-03-12 16:00] VITALS: BP 136/60; PULSE 63; RESP 18; TEMP 98.1
--- NOTE | 2025-03-12 18:32 | HP ---
[facility] HISTORY & PHYSICAL Date Patient Seen: Mar 12, 2025 Time of Visit: 18:23 Supervising Physician: Dr. Rocky Bey Primary Care Physician: Dr. Wilbert Leone Outpatient Specialists: Dr. Quiroz Inpatient Consults: [ ] PROBLEM LIST: 1. Severe symptomatic aortic stenosis 2. Moderate pulmonary hypertension 3. Hypertension 4. Morbid obesity, BMI 31.7 HPI: Iva Aguilar is an 84-year-old female patient of Dr.Jamie Alan Leone health history of aortic stenosis, hypertension, pulmonary hypertension, and Thompson's palsy presenting for left and right-sided heart catheterization on 03/11/2025. C final impressions were the following: No significant coronary artery lesions. Moderate pulmonary hypertension. Hemodynamically significant a ortic stenosis by echocardiography and by cardiac catheterization.Questionable hypertrophic component to the patient's gradient. The plan is to continue with medical management and observe the patient reassess an echocardiogram and consider and evaluation for TAVR. PAST MEDICAL HX: see above PAST SURGICAL HX: noncontributory SOCIAL HISTORY: No tobacco, ETOH, or illicit drug use Coded Allergies: fluconazole (Unverified Allergy, Unknown, 04/09/24) hydralazine (Unverified Allergy, Unknown, 04/09/24) hydrochlorothiazide (Unverified Allergy, Unknown, 04/09/24) REVIEW OF SYSTEMS: 12 point ROS reviewed with patient. Pertinent positives mentioned above. Otherwise negative. PHYSICAL EXAM: GENERAL: alert, , awake oriented x 3 HEENT: EOMI, Sclera non icteric, moist mucosa NECK: Supple, no JVD, trachea midline LUNGS: Clear breath sounds bilaterally. No wheezes HEART: Regular rate and rhythm. Normal S1 and S2, audible murmur ABD: Abdomen soft, nontender. Bowel sounds present EXT: No clubbing cyanosis or edema NEURO: Alert and oriented to person, follows commands Vital Signs (last 8hr) Date Time Temp Pulse Resp B/P (MAP) Pulse Ox O2 Delivery O2 Flow Rate FiO2 03/12/25 16:00 98.1 63 18 136/60 99 Room Air 03/12/25 11:47 98.2 60 18 147/77 96 Room Air LABS: DIAGNOSTICS / RADIOLOGY RESULTS: PROCEDURES: 1. Right heart catheterization. 2. Left heart catheterization. 3. Selective diagnostic right and left coronary arteriogram. 4. Conscious sedation for 60 minutes. INDICATIONS: Severe, symptomatic aortic stenosis. COMPLICATIONS: None. DESCRIPTION OF PROCEDURE: The patient was taken to the cardiac lab courier after appropriate operative consents were signed. She was prepped and draped in the usual fashion. After conscious sedation was administered, the right and left common femoral artery and vein regions were infiltrated with 2% Xylocaine without epinephrine. Right common femoral artery was accessed in retrograde fashion with the modified Seldinger technique and a 6 x 45 sheath was advanced over an indwelling wire under fluoroscopic guidance. Multiple attempts were made to cannulate the right common femoral vein; however, that was not a successful endeavor. The patient was noted to have no flow in the right common or femoral vein and it was noncompressible, so I elected not to intervene given the potential for possible compromise. At this point, the left common femoral vein was accessed after ultrasound guidance was utilized. A [place]-Lorie catheter was advanced under fluoroscopic guidance and positioned in the right atrium, right ventricle, PA, and pulmonary capillary wedge pressure positions. Pressures were recorded and logged. At this point, a multipurpose catheter was advanced over an indwelling wire. This was selectively engaged in the ostium of the right coronary artery. Imaging was obtained in multiplane. The right coronary artery was a moderately large vessel that had a tortuous segment in its distal end. It gave rise an acute marginal PDA and a small PLVB. No significant stenotic lesions were identified. The catheter was then redirected and engaged in the ostium of the left main. This was imaged in multiplane. The left main was a moderately large vessel that was free of disease. It trifurcate to an LAD, small intermediate, and circumflex. The LAD was a moderately sized vessel that had a calcified segment of approximately 20% and a calcified area in the proximal portion. The rest of the LAD and diagonals were free of disease. Intermediate was a small vessel that was free of disease. The circumflex was a moderately sized vessel that gave rise to 2 small marginals and ongoing distal OM3 that was moderately sized. There was an area of 20% stenosis of the proximal circumflex. At this point, we were able to cross into the left ventricular cavity and we exchanged for a 5-Mohawk pigtail catheter. The patient did not have any hemodynamic features of mitral stenosis. She did have moderate pulmonary hypertension. The gradient across the aortic valve was measured and surprisingly, we had varying measurements with at times measurements as low as 36 mmHg and at other times we had a segment in which the patient had some PVCs and had a gradient of 65-70 mmHg. It was not a positive Brockenbrough phenomenon. The patient's pullback was consistent with approximately 36 mmHg gradient. Cardiac output was performed and recorded. At this point, the procedure was completed, Angio-Seal was utilized with good hemostasis. Vascade was utilized for the [place]-Lorie with good hemostasis. The patient was stable and tolerated the procedure well at the end of the procedure. FINAL IMPRESSION: 1. Minimal, nonobstructive luminal irregularities with no significant coronary artery lesions. 2. Moderate pulmonary hypertension. 3. Hemodynamically significant aortic stenosis by echocardiography and by cardiac catheterization. 4. Questionable hypertrophic component to the patient's gradient. PLAN: We will continue medical management. We will observe the patient, reassess an echocardiogram, and consider an evaluation for TAVR. TID: [id number] RECEIPT: [id number] DICTATED BY: Roberto QUIROZ II, MD DATE & TIME: 03/11/25 1639 ELECTRONICALLY SIGNED BY: DATE & TIME: PLAN Telemetry. Follow recommendations of point of care technician Continue with GI and DVT prophylaxis A.m. labs NEURO: Minimize central acting medications as possible. Maintain fall precautions, adequate lighting during the day PULMONARY: Supplemental 02 as needed. Maintain aspiration precautions at all times CARDIOVASCULAR: Follow hemodynamics. Vital signs per facility protocol GI & NUTRITION: Continue with nutritional support. Continue stool softeners and laxatives as needed. KIDNEYS & ELECTROLYTES: Strict monitoring of intake, output and overall fluid balance. Avoid nephrotoxic medications to the extent possible. Medications to be dosed according to renal function. Monitor electrolytes and replace as needed ENDOCRINE: Maintain blood glucose between 100-180 at all times. Hypoglycemia protocol in place INFECTIOUS DISEASE: Trend temperature, WBC and procalcitonin level Follow cultures, deescalate antibiotics as soon as possible. Panculture if new onset fever ONCOLOGY/HEMATOLOGY/COAGULATION: Monitor for s/s of bleeding Monitor hemoglobin, coagulation studies as needed SKIN: Pressure ulcer prevention per facility protocol Specialty mattress ORTHO/REHAB: Continue PT/OT Prophylaxis: Continue GI and DVT prophylaxis Code Status: Full Resuscitation Disposition: TBD Other: Total patient care time exceeds 35 minutes excluding all procedures. LUCIE QUINN [facility] Mar 12, 2025 18:32
--- NOTE | 2025-03-12 18:42 | DS ---
[facility] DISCHARGE SUMMARY Date Patient Seen: Mar 12, 2025 Time of Visit: 18:41 Supervising Physician: [ ] Primary Care Physician: Dr. Wilbert Leone Outpatient Specialists: Dr. Quiroz Inpatient Consults: [ ] PROBLEM LIST: 1. Severe symptomatic aortic stenosis 2. Moderate pulmonary hypertension 3. Hypertension 4. Morbid obesity, BMI 31.7 HOSPITAL COURSE: The patient had an echocardiogram today results are the following:Left ventricular cavity size is normal. LVEF is 55-60%. Stage II diastolic dysfunction. The right ventricle is normal size. The right ventricular systolic function is normal. The left atrium is moderately dilated. The right atrium size is normal. Mild aortic regurgitation. There is moderate to severe valvular aortic stenosis. Highest mean aortic valve gradient is 38mmHg. PV 3.4 m/s, SHERIF 0.9 cm2. Peak aortic valve gradient is 66mmHg. Mitral regurgitation is mild. No pericardial effusion. The patient is medically stable at this time and we will follow up with Dr. Quiroz at the scheduled appointment. HPI (per admitting provider) Iva Aguilar is an 84-year-old female patient of Dr.Jamie Alan Leone [facility] history of aortic stenosis, hypertension, pulmonary hypertension, and Thompson's palsy presenting for left and right-sided heart catheterization on 03/11/2025. C final impressions were the following: No significant coronary artery lesions. Moderate pulmonary hypertension. Hemodynamically significant aortic stenosis by echocardiography and by cardiac catheterization.Questionable hypertrophic component to the patient's gradient. The plan is to continue with medical management and observe the patient reassess an echocardiogram and consider and evaluation for TAVR The patient was treated for the following problems: ACTIVE PROBLEM LIST FOR THE HOSPITALIZATION: 1. Severe symptomatic aortic stenosis 2. Moderate pulmonary hypertension 3. Hypertension 4. Morbid obesity, BMI 31.7 CHRONIC PROBLEMS: continue previous management per PCP unless otherwise indicated ARTIST COLOR SEPARATION FINDINGS/RECOMMENDATIONS: [ ] PROCEDURES: as mentioned above REASON: chf ORDERING PHYSICIAN: Roberto QUIROZ II, MD PROCEDURE: ECHO CMP - ECHO 2-D COMPLETE APPROVED REPORT EXAM: Two-dimensional and M-mode echocardiogram with Doppler and color Doppler. INDICATION ICD: CHF 2D Dimensions RVDd 4.0 cm LVEF(%) 74.9 (>50%) LVED Vol(simp.) 83.0 mL IVSd 1.0 (0.7-1.1cm) FS(%) 43 % LVES Vol(simp.) 35.0 mL LVDd 3.5 (3.8-5.6cm) LA (2D) 4.0 (1.6-4.0cm) LVEF(%, simp.) 57 % PWd 1.2 (0.7-1.1cm) Ao Root(2D) 2.7 (2.0-3.7cm) LA ESV INDEX (BP) 40.73 mL/m2 LVDs 2.0 (2.5-4.0cm) LVOT diam 1.9 (1.8-2.4cm) IVC diam 1.6 cm Deformation Strain Apical 4 -13.7 % Apical 2 -16.9 % Apical 3 -13.7 % Global Strain -14.7 % Aortic Valve AoV Vmax 3.5 m/s Ao Peak GR 48.8 mmHg LVOT Vmax 0.9 m/s AoV VTI 0.9 m Ao Mean GR 28.8 mmHg LVOT VTI 0.24 m SHERIF (VMAX) 0.74 cm2 Al P1/2T 418 ms SHERIF (VTI) 0.8 cm2 Mitral Valve MV E Vmax 107.2 cm/s DECEL Time 203 ms MV A Vmax 54.6 cm/s P 1/2 T 69 ms E/A ratio 2.0 MVA (PHT) 3.2 cm2 TDI E/E' Medial 19.4 E/E' Lateral 17.4 Medial E' Peak V 5.53 cm/s Lateral E' Peak V 6.17 cm/s Pulmonary Valve PV Vmax 1.1 m/s PV VTI 0.26 m PV Mean GR 2.7 mmHg PV Peak GR 4.6 mmHg Tricuspid Valve TR Vmax 2.7 m/s RVSP 28.9 mmHg TR Peak GR 29.1 mmHg Left Ventricle Left ventricular cavity size is normal. Mild left ventricular hypertrophy. LVEF is 55-60%. Stage II diastolic dysfunction. Right Ventricle The right ventricle is normal size. The right ventricular systolic function is normal. Atria The left atrium is moderately dilated. The right atrium size is normal. Aortic Valve The aortic valve is calcified and displays decreased opening. Mild aortic regurgitation. There is moderate to severe valvular aortic stenosis. Highest mean aortic valve gradient is 38mmHg. PV 3.4 m/s, SHERIF 0.9 cm2. Peak aortic valve gradient is 66mmHg. Mitral Valve The mitral valve is normal in structure and function. Mitral regurgitation is mild. There is no mitral valve stenosis. Tricuspid Valve The tricuspid valve is normal in structure and function. There is trace tricuspid valve regurgitation noted. Pulmonic Valve The pulmonary valve is normal in structure and function. There is no pulmonic valvular regurgitation. Great Vessels The aortic root is normal in size. The IVC is normal in size and collapses >50% with inspiration. Pericardium No pericardial effusion. Conclusion Left ventricular cavity size is normal. LVEF is 55-60%. Stage II diastolic dysfunction. The right ventricle is normal size. The right ventricular systolic function is normal. The left atrium is moderately dilated. The right atrium size is normal. Mild aortic regurgitation. There is moderate to severe valvular aortic stenosis. Highest mean aortic valve gradient is 38mmHg. PV 3.4 m/s, SHERIF 0.9 cm2. Peak aortic valve gradient is 66mmHg. Mitral regurgitation is mild. No pericardial effusion. DICTATED BY: MELISSA MOLINA MD DATE: 03/12/25 1100 ELECTRONICALLY SIGNED BY: MELISSA MOLINA MD DATE: 03/12/25 1349 DISCHARGE MEDICATIONS: Pt hemodynamically stable and afebrile at time of discharge. PCP notified of patients admission, hospital course and discharge. PHYSICAL EXAM: GENERAL: alert, , awake oriented x 3 HEENT: EOMI, Sclera non icteric, moist mucosa NECK: Supple, no JVD, trachea midline LUNGS: Clear breath sounds bilaterally. No wheezes HEART: Regular rate and rhythm. Normal S1 and S2, audible murmur ABD: Abdomen soft, nontender. Bowel sounds present EXT: No clubbing cyanosis or edema NEURO: Alert and oriented to person, follows commands FOLLOW-UP: Dr. Erasmo Leone Follow-up with PCP in 2-3 days Follow up with Dr Quiroz at your scheduled appointment. RECOMMENDATIONS: See Discharge Instructions This case was seen and discussed with my supervising physician. More than 45 minutes spent on discharge process, including evaluation of the patient, discussion with nursing staff, medication reconciliation and follow-up appointments LUCIE QUINN AGACNP Mar 12, 2025 18:42
--- NOTE | 2025-03-12 19:19 | NUR ---
PATIENT DSICHARHED HOME ID BAND,IV AND TELE VICKIE REMOVED. DISCHARGED INSTRUCTIONS EXPLAINED AND GIVEN TO PATIENT. PATIENT VERBALIZED UNDERSTANDING. BELONGINGS PACKED AND TAKEN BY PATIENT. WHEELED DOWN TO PRIVATE CAR.
== END 2025-03-12 19:12 | disposition home or self-care (01) ==
LOC: DAH 10:32 → DAHIP 10:33 → 3BH 18:15
PROVIDERS: ADMIT Internal Medicine Pulmonary Disease; ATTEND Internal Medicine Pulmonary Disease
DX: I35.0 Nonrheumatic aortic (valve) stenosis (principal); I27.20 Pulmonary hypertension, unspecified; I11.0 Hypertensive heart disease with heart failure; I50.9 Heart failure, unspecified; I34.0 Nonrheumatic mitral (valve) insufficiency; E66.01 Morbid (severe) obesity due to excess calories; G51.0 Bell's palsy; I25.10 Atherosclerotic heart disease of native coronary artery without angina pectoris; Z68.31 Body mass index [BMI] 31.0-31.9, adult; Z79.899 Other long term (current) drug therapy; Z98.890 Other specified postprocedural states
CPT/HCPCS: 80048; 83880; 85025; 85610; 85730; 81003; 36415; 71045; 93005; 93460; 99156; 99157 ×3; 93306; 93356; C1769 ×4; C1894 ×2; C1760 ×3; C1893; Q9965; G0378 ×25; J3010; J3490 ×4; J7030; J2250 ×2; J1644 ×2; Q9967 ×2; A4215; A4223 ×3; A4222; A4221; A4663; A4216; A4606